=== PATIENT | female | born 1940 | race Caucasian/White ===

== ENCOUNTER 2017-02-08 13:28 | Emergency (ER) | payer MEDICARE, OTHER ==
[~2017-02-08] VITALS: Ht 160 cm; Wt 85.7 kg
[~2017-02-08 13:28] MED LIST: ONDANSETRON 4 MG/2 ML (SDV) Z0FRAN ONE
[2017-02-08] MEDS ORDERED: PROMETHAZINE INJ 25 MG/ML (PHENERGAN) AMP ONE (13:42)
[2017-02-08] MEDS ORDERED: ONDANSETRON 4 MG/2 ML (SDV) Z0FRAN IVP ONE (13:45)
--- NOTE | 2017-02-08 14:00 | ED Upper Extremity ---
General Chief Complaint: Upper Extremity Stated Complaint: LT SHOULDER FX Source: patient Exam Limitations: no limitations History of Present Illness Time seen by provider: 13:35 Initial Comments Here from [facility] from the urgent care there with report left upper arm fracture after fall. Apparently she was turned clear, when she fell over and hit a wall and apparently broke her arm and the upper portion. They did not have with the capability or availability at [facility] so the ambulance transported her here. In route she received an IV as well as 10 mg of morphine IV and 100 g of fentanyl IV and 4 mg of Zofran IV for pain and nausea. Denies other injury and denies hitting her head. No loss of consciousness. Onset: this afternoon (at about 1230 p.m.) Severity: moderate, severe Pain/Injury Location: left shoulder, left arm Method of Injury: fell Modifying Factors: Improves With Immobilization, Worse With Movement, Improves With Pain Medication Allergies and Home Medications Allergies Coded Allergies: No Known Drug Allergies (Unverified , 02/08/17) Constitutional: see HPI, No chills, No fever Respiratory: no symptoms reported Cardiovascular: no symptoms reported Gastrointestinal: No abdominal pain, nausea, vomiting Genitourinary: no symptoms reported Musculoskeletal: see HPI, joint pain, muscle pain Skin: No change in color, No lesions Psychiatric/Neurological: No Symptoms Reported, Denies Numbness, Denies Paresthesia, Denies Tingling All Other Systems Reviewed Negative Unless Noted: Yes Past Vtngrwo-Nszelt-Fjvsjl Hx Patient Social History Alcohol Use: Denies Use Recreational Drug Use: No Smoking Status: Never a Smoker Recent Hopitalizations: No Surgeries HX Surgeries: No Respiratory Hx Respiratory Disorders: No Cardiovascular Hx Cardiac Disorders: Yes Cardiac Disorders: Hypertension Neurological Hx Neurological Disorders: No Genitourinary Hx Genitourinary Disorders: No Musculoskeletal Hx Musculoskeletal Disorders: Yes Musculoskeletal Disorders: Arthritis Reviewed Nursing Assessment Reviewed/Agree w Nursing PMH: Yes Family Medical History Significant Family History: No Pertinent Family Hx Physical Exam Vital Signs Vital Sign - Last 12Hours 02/08/17 13:42 Temp 97.1 Pulse 63 Resp 18 B/P (MAP) 208/89 Pulse Ox 100 Capillary Refill : General Appearance: WD/WN, moderate distress (left arm pain near the shoulder) HEENT: PERRL/EOMI, pharynx normal Neck: full range of motion, supple Cardiovascular: regular rate, rhythm, no murmur Respiratory: lungs clear, normal breath sounds Gastrointestinal: non tender, soft Back: normal inspection, no CVA tenderness, no vertebral tenderness Shoulder: limited ROM, pain, soft tissue tenderness, swelling (all left shoulder related) Elbow/Forearm: non-tender, no evidence of injury, Right, Left Wrist: Yes non-tender, Yes no evidence of injury, Yes normal ROM Hand: normal ROM, Right, Left Neurologic/Tendon: normal sensation, normal motor functions, normal tendon functions Neurologic/Psychiatric: alert, oriented x 3 Skin: normal color, warm/dry Progress/Results/Core Measures Results/Orders My Orders Orders - CHARLENE MEZA MD Ondansetron Injection (Zofran Injectio (02/08/17 13:45) Promethazine Injection (Phenergan Injec (02/08/17 13:42) Outside Films For Comparison (02/08/17 ) Fentanyl Injection (Sublimaze Injection (02/08/17 14:21) Fentanyl Injection (Sublimaze Injection (02/08/17 14:17) Hydrocodone/Apap 7.5/325 Tab (Lortab 7. (02/08/17 14:43) Medications Given in ED Current Medications Medications Dose Ordered Sig/Edwardo Route Start Time Stop Time Status Last Admin Dose Admin Ondansetron HCl 4 mg ONCE ONCE IVP 02/08/17 13:45 02/08/17 13:46 DC 02/08/17 13:30 4 MG Promethazine HCl 25 mg STK-MED ONCE .ROUTE 02/08/17 13:42 02/08/17 13:49 DC 02/08/17 13:50 25 MG Vital Signs/I&O Vital Sign - Last 12Hours 02/08/17 13:42 Temp 97.1 Pulse 63 Resp 18 B/P (MAP) 208/89 Pulse Ox 100 Progress Note : Progress Note Seen and evaluated. IV by EMS. Zofran 4 mg IV. Fentanyl 75 g IV ordered for pain. I did discuss the case with Dr. Chavez after looking at the films from the outside hospital. He also evaluated the films as they were loaded pax. Patient's may require further orthopedic intervention but at this point and immobilizer is what's appropriate plus pain control and ice packs. I did discuss all this with the patient and family. We will convert to oral narcotics and evaluated for pain control. Ice pack was given. Monitor patient. 1545: Hydrocodone 7.5 mg by mouth is given earlier and patient states that the pain is tolerable at this point. We discussed return precautions and follow-up instructions as well as therapy at home. Discharged home with return precautions. Patient verbalize understanding instructions and agreement with plan. Departure Impression Impression: Primary Impression: Fracture of proximal end of left humerus Qualified Codes: S42.292A - Other displaced fracture of upper end of left humerus, initial encounter for closed fracture Disposition: HOME, SELF-CARE Condition: Stable Departure-Patient Inst. Decision time for Depature: 15:45 Referrals: NO,LOCAL PHYSICIAN (PCP) Primary Care Physician JAVIER CHAVEZ DO Patient Instructions: How to Use a Shoulder Sling, Upper Arm Fracture Add. Discharge Instructions: All discharge instructions reviewed with patient and/or family. Voiced understanding. Take medications as directed. You may take one extra strength Tylenol instead of the prescribed pain medicine if pain is not too bad but do not take both at same time as both have acetaminophen in it. Call Dr. Chavez's office for appointment here in [place] next week on Monday. Let them know that the case was discussed with Dr. Chavez and he wants to see her on Monday. You can also talk with them about the office address for [place]. Use ice packs to the affected area 20 minutes per hour to reduce swelling. It is advisable to flex your fingers, wrist and even the elbow a little bit to reduce swelling which will decrease pain. Do not be surprised if you have bruising that extends from the shoulder down anterior forearm. Return for worse pain, swelling, weakness, numbness of her hand or other concerns as needed. You very careful when moving about as you have decreased mobility due to the injury and the pain medications will make you drowsy or lightheaded. Scripts Hydrocodone/Acetaminophen (Hydrocodon-Acetaminoph 7.5-325) 1 Each Tablet 1 EACH PO Q4H, #42 TAB 0 Refills Prov: CHARLENE MEZA MD 02/08/17 CHARLENE MEZA MD Feb 08, 2017 14:00
[2017-02-08] MEDS ORDERED: fentaNYL INJECTION 100 MCG/2 ML AMP ONE (14:17)
[2017-02-08] MEDS ORDERED: fentaNYL INJECTION 100 MCG/2 ML AMP IVP STA (14:21)
[2017-02-08] MEDS ORDERED: HYDROcodone/APAP 7.5 MG/325 MG (LORTAB, LORCET PLUS) TABLET PO STA (14:43)
[2017-02-08] MEDS ORDERED: HYDR-3816 PO (15:48)
[2017-02-08 16:02] VITALS: BP 149/66
== END 2017-02-08 16:02 | disposition home or self-care (01) ==
LOC: ER 13:30
DX: Z04.3 Encounter for examination and observation following other accident (principal)
CPT/HCPCS: 96374; 96375; 99283

== ENCOUNTER → 2019-09-05 | Outpatient (CLI) | payer MEDICARE, OTHER ==
[~2019-09-05] MED LIST changes: +HYDR-34 PO; -ONDANSETRON 4 MG/2 ML (SDV) Z0FRAN ONE
--- NOTE | 2019-09-05 16:05 | Diagnostic Imaging Report ---
INDICATION: Cough, shortness of breath and wheezing. PA and lateral views were obtained. FINDINGS: The heart size, mediastinal configuration, and pulmonary vascularity are within normal limits. There is no pleural effusion, pneumothorax, or pneumonia. The osseous structures are unremarkable. IMPRESSION: No acute cardiopulmonary abnormality. Dictated by: Dictated on workstation # [id number]
== END ==
LOC: RAD 15:42
PROVIDERS: ATTEND Family Medicine
DX: R06.2 Wheezing (principal); R06.02 Shortness of breath; R05 Cough
CPT/HCPCS: 71046

== ENCOUNTER → 2020-11-16 | Outpatient (CLI) | payer MEDICARE, OTHER ==
[~2020-11-16] MED LIST changes: +GADOBUTROL 10 MMOL/10 ML (GADAVIST) VIAL IV ONE
--- NOTE | 2020-11-16 12:33 | Diagnostic Imaging Report ---
PROCEDURE: MR imaging of the brain with and without contrast. TECHNIQUE: Multiplanar, multisequence MR imaging of the brain was performed with and without contrast. INDICATION: Memory loss. No prior studies are available for comparison. The ventricles and sulci are within normal limits. There are extensive periventricular and subcortical white matter signal abnormalities noted consistent with chronic microvascular ischemia. No diffusion restriction is identified to suggest acute ischemia. The normal expected flow-voids within the carotid siphons are noted. No acute intra-axial or extra-axial hemorrhage is detected. There is an enhancing extra-axial mass along the left frontal convexity measuring 10 mm x 6 mm, most consistent with a small meningioma. No other enhancing lesions are seen. Corpus callosum is unremarkable. Sella and parasellar structures are unremarkable. IMPRESSION: 1. Changes of chronic microvascular ischemia. No acute intracranial process is identified. 2. Enhancing extra-axial left frontal convexity lesion consistent with meningioma. Dictated by: Dictated on workstation # [id number]
== END ==
LOC: RAD 10:55
PROVIDERS: ATTEND Nurse Practitioner
DX: F03.91 Unspecified dementia, unspecified severity, with behavioral disturbance (principal); I10 Essential (primary) hypertension
CPT/HCPCS: 70553

== ENCOUNTER → 2021-06-07 | Outpatient (CLI) | payer MEDICARE ==
[~2021-06-07] MED LIST changes: -GADOBUTROL 10 MMOL/10 ML (GADAVIST) VIAL IV ONE
== END ==
LOC: LAB FS 10:30
PROVIDERS: ATTEND Orthopaedic Surgery
DX: Z01.812 Encounter for preprocedural laboratory examination (principal); Z20.822 Contact with and (suspected) exposure to COVID-19
CPT/HCPCS: 87635

== ENCOUNTER → 2022-02-23 | Outpatient (CLI) | payer MEDICARE ==
[~2022-02-23] MED LIST changes: +GADOTERATE 0.5 MMOL/ML (CLARISCAN) 20 ML VIAL IV ONE
--- NOTE | 2022-02-23 13:33 | Diagnostic Imaging Report ---
Clinical Indication: Patient is having memory problems. Exams: 1: MRI of the brain performed without and with 16 cc of Clariscan IV contrast. Sequences include axial DWI, ADC map, coronal gradient echo, axial FLAIR, axial T1, axial T2, axial T1 post IV contrast whole brain, coronal T1 fat-sat post IV contrast whole brain, and sagittal T1 fat-sat post IV contrast whole brain. Comparison: MRI of the brain with and without contrast dated 11/16/2020. Findings: Stable 10 mm x 6 mm dural based enhancing mass involving the lateral aspect of left frontal lobe convexity region likely representing meningioma. There is no evidence of acute cerebral infarct, intracranial hemorrhage, or gross mass effect. The brain parenchymal volume appears appropriate for patient's age. There is slight progression of patchy mildly confluent areas of high T2 signal white matter changes troubles cerebral hemispheres and periventricular regions, likely representing mild chronic small vessel ischemic disease and leukoaraiosis. There is normal ortega-white matter distinction. There is no significant midline shift or herniation. The [place] of [place] vascular structures show no gross abnormality as visualized. The pituitary gland, sella, and suprasellar regions are unremarkable as visualized. There is no evidence of hydrocephalus. The basal cisterns are unremarkable. The skull, extracranial soft tissue, and orbits are unremarkable. There is mild mucosal thickening involving both maxillary sinuses, frontal sinus, sphenoid sinus. There is moderate to large amounts of mucosal thickening and consolidation involving the ethmoid sinus. Temporal bones show no significant abnormality. IMPRESSION: 1: There is no evidence of acute intracranial process. 2: Stable meningioma along the lateral left frontal convexity region. 3: Age-related brain parenchymal changes including chronic small vessel ischemic disease. Dictated by: Dictated on workstation # [id number]
== END ==
LOC: RAD 11:45
PROVIDERS: ATTEND Nurse Practitioner
DX: D32.0 Benign neoplasm of cerebral meninges (principal); G31.1 Senile degeneration of brain, not elsewhere classified; I67.82 Cerebral ischemia
CPT/HCPCS: 70553